=== PATIENT | male | born 1985 | race Two or more races ===

== ENCOUNTER 2021-04-05 22:25 | Emergency (ER) | payer SELFPAY ==
[2021-04-05 23:16] VITALS: BP 163/97; PULSE 91; TEMP 97.7; BMI 33.9
[2021-04-06] MEDS ORDERED: IBUPROFEN 400 MG TABLET (FP) PO ONE (00:34)
[2021-04-06] MEDS ORDERED: IBUPROFEN 600 MG TABLET (FP) PO ONE (00:48)
== END 2021-04-06 02:18 | disposition home or self-care (01) ==
LOC: JER 22:25
DX: M25.561 Pain in right knee (principal)
CPT/HCPCS: 73564-TC-RT-FY; 99283-25